=== PATIENT | female | born 1965 | race Caucasian/White ===

== ENCOUNTER 2017-11-06 16:22 | Inpatient (IN) | payer MEDICAID, OTHER ==
[2017-11-06] VITALS (10 sets, daily range): BP systolic 93–158; BP diastolic 50–83; PULSE 70–103; RESP 16–22; TEMP 98.1–102.8; O2SAT 89–98
[~2017-11-06] VITALS: Ht 170.2 cm; Wt 81.0 kg
[~2017-11-06 16:22] MED LIST: 1-ME1LIQ PO; ADVA100A INH; CYCL-36 PO; LORA-474 PO; NAPR-729 PO; PRED20 PO; VENTAER INH; ZITH250T PO
[2017-11-06] MEDS ORDERED: CYCL5TAB PO (16:52)
[2017-11-06] MEDS ORDERED: FLUT1INH INH (16:52)
[2017-11-06] MEDS ORDERED: LORA0.5T PO (16:52)
[2017-11-06] MEDS ORDERED: AMBI5TAB PO (16:52)
[2017-11-06] MEDS ORDERED: AMLO2.5T PO (16:52)
[2017-11-06] MEDS ORDERED: SODIUM CHLOR 0.9% 1000 ML INJ 1,000 ML IV SCH (17:01)
[2017-11-06 17:04] LABS: BILIRUBIN, URINE NEG (NEG); BLOOD, URINE TRACE (NEG); GLUCOSE,URINE NEG (NEG); KETONE, URINE NEG (NEG); NITRITE,URINE NEG (NEG); URINE COLOR YELLOW (YELLW/STRAW); URINE LEUKOCYTE ESTERASE NEG (NEG)
--- NOTE | 2017-11-06 17:05 | PD ---
HPI Chief Complaint: Complaint Time Seen by Provider: 16:57 Travel History International Travel<30 days: No Contact w/Intl Traveler<30days: No Traveled to known affect area: No History of Present Illness HPI 52-year-old female here for evaluation of left flank pain. The patient first noticed the pain yesterday evening when going to sleep. She states that the pain has progressively worsened throughout the day today and is caused her to become nauseous. She has had subjective fevers/chills. She has also had increased urinary frequency. No dysuria or hematuria. No trauma. Pain is made worse with laying down. PFSH Past Medical History Asthma: Yes Anxiety: Yes Cancer: Yes (1994 BREAST CA) Chemotherapy: Yes Diabetes: No Diminished Hearing: No Hypertension: Yes Medical other: Yes (RLS) Musculoskeletal: Yes (NECK) Respiratory: Yes (ASTHMA) Immunizations Current: Yes Radiation Therapy: Yes Influenza Vaccination: No ?: Not Menopausal: Yes Past Surgical History Section: Yes (2001) Mastectomy: Yes (RIGHT) Other Surgery: Yes (RIGHT BREAST RECONSTRUCTION, BILAT AUGMENTATION) Social History Alcohol Use: Yes ([facility]) Tobacco Use: No (QUIT IN 1988 SMOKED 2 PACKS OF CIGS A DAY) Substance Use: No Allergies-Medications (Allergen,Severity, Reaction): Coded Allergies: No Known Allergies (Verified Adverse Reaction, Unknown, 11/06/17) Reported Meds & Prescriptions Reported Meds & Active Scripts Active Reported Ambien (Zolpidem Tartrate) 5 Mg Tab Unknown Dose PO HS PRN Amlodipine (Amlodipine Besylate) 2.5 Mg Tab Unknown Dose PO DAILY Breo Ellipta Inh (Fluticasone/Vilanterol) 100-25 Mcg/Act Inh Unknown Dose INH DAILY Use daily at the same time. Flexeril (Cyclobenzaprine HCl) 5 Mg Tab Unknown Dose PO HS Lorazepam 0.5 Mg Tab Unknown Dose PO HS PRN Review of Systems Except as stated in HPI: all other systems reviewed are Neg Physical Exam Narrative GENERAL: Well-developed, well-nourished, no apparent distress. SKIN: Focused skin assessment warm/dry. No rash. HEAD: Atraumatic. Normocephalic. EYES: Pupils equal and round. No scleral icterus. No injection or drainage. ENT: Mucous membranes pink and moist. NECK: Trachea midline. No JVD. CARDIOVASCULAR: Regular rate and rhythm. No murmur appreciated. RESPIRATORY: No accessory muscle use. Clear to auscultation. Breath sounds equal bilaterally. GASTROINTESTINAL: Abdomen soft, non-tender, nondistended. MUSCULOSKELETAL: No obvious deformities. No clubbing. No cyanosis. No edema. Mild left CVA tenderness. No right CVA tenderness. No midline vertebral step- off or tenderness. NEUROLOGICAL: Awake and alert. No obvious cranial nerve deficits. Motor grossly within normal limits. Normal speech. PSYCHIATRIC: Appropriate mood and affect; insight and judgment normal. Data Data Last Documented VS Vital Signs Date Time Temp Pulse Resp B/P (MAP) Pulse Ox O2 Delivery O2 Flow Rate FiO2 11/06/17 19:34 102.8 103 22 123/63 (83) 95 11/06/17 18:21 Nasal Cannula 2.00 Orders Orders Urinalysis - C+S If Indicated (11/06/17 16:30) Complete Blood Count With Diff (11/06/17 17:) Comprehensive Metabolic Panel (11/06/17:) Lipase (11/06/17:) Prothrombin Time / Inr (Pt) (11/06/17 17:) Act Partial Throm Time (Ptt) (11/06/17 17:01) Ct Abd/Pel W/O Iv Contrast (11/06/17 17:01) Iv Access Insert/Monitor (11/06/17 17:) Ecg Monitoring (11/06/17 17:01) Oximetry (11/06/17 17:01) Sodium Chlor 0.9% 1000 Ml Inj (Ns 1000 M (11/06/17 17:01) Sodium Chloride 0.9% Flush (Ns Flush) (11/06/17 17:15) Morphine Inj (Morphine Inj) (11/06/17 17:15) Ondansetron Inj (Zofran Inj) (11/06/17 17:15) Urine Culture (11/06/17 16:40) Ceftriaxone Inj (Rocephin Inj) (11/06/17 18:15) Sodium Chlor 0.9% 1000 Ml Inj (Ns 1000 M (11/06/17 19:30) Ketorolac Inj (Toradol Inj) (11/06/17 19:30) Acetaminophen (Tylenol) (11/06/17 19:30) Tamsulosin (Flomax) (11/06/17 19:45) Cefepime Inj (Maxipime Inj) (11/06/17 20:00) Labs Laboratory Tests Test 11/06/17 16:40 11/06/17 17:20 Urine Collection Type CLEAN CATCH Urine Color YELLOW Urine Turbidity SL CLOUDY Urine pH 7.0 Urine Specific [place] 1.015 Urine Protein NEG mg/dL Urine Glucose (UA) NEG mg/dL Urine Ketones NEG mg/dL Urine Occult Blood TRACE Urine Nitrite NEG Urine Bilirubin NEG Urine Urobilinogen 1.0 MG/DL Urine Leukocyte Esterase NEG Urine RBC 0-3 /hpf Urine WBC 3-5 /hpf Urine Squamous Epithelial Cells 0-5 /hpf Urine Bacteria MOD /hpf Urine Mucus OCC /lpf Microscopic Urinalysis Comment CULTURE INDICATED White Blood Count 12.9 TH/MM3 Red Blood Count 4.67 MIL/MM3 Hemoglobin 13.7 GM/DL Hematocrit 41.0 % Mean Corpuscular Volume 87.7 FL Mean Corpuscular Hemoglobin 29.4 PG Mean Corpuscular Hemoglobin Concent 33.5 % Red Cell Distribution Width 13.2 % Platelet Count 306 TH/MM3 Mean Platelet Volume 9.7 FL Neutrophils (%) (Auto) 80.8 % Lymphocytes (%) (Auto) 12.1 % Monocytes (%) (Auto) 5.5 % Eosinophils (%) (Auto) 0.9 % Basophils (%) (Auto) 0.7 % Neutrophils # (Auto) 10.4 TH/MM3 Lymphocytes # (Auto) 1.6 TH/MM3 Monocytes # (Auto) 0.7 TH/MM3 Eosinophils # (Auto) 0.1 TH/MM3 Basophils # (Auto) 0.1 TH/MM3 CBC Comment DIFF FINAL Differential Comment Prothrombin Time 9.9 SEC Prothromb Time International Ratio 1.0 RATIO Activated Partial Thromboplast Time 28.2 SEC Blood Urea Nitrogen 11 MG/DL Creatinine 1.00 MG/DL Random Glucose 104 MG/DL Total Protein 8.0 GM/DL Albumin 3.7 GM/DL Calcium Level 8.5 MG/DL Alkaline Phosphatase 80 U/L Aspartate Amino Transf (AST/SGOT) 8 U/L Alanine Aminotransferase (ALT/SGPT) 19 U/L Total Bilirubin 0.3 MG/DL Sodium Level 138 MEQ/L Potassium Level 3.7 MEQ/L Chloride Level 104 MEQ/L Carbon Dioxide Level 26.0 MEQ/L Anion Gap 8 MEQ/L Estimat Glomerular Filtration Rate 58 ML/MIN Lipase 69 U/L [facility] Medical Decision Making Medical Screen Exam Complete: Yes Emergency Medical Condition: Yes Differential Diagnosis Nephrolithiasis, ureterolithiasis, pyelonephritis, musculoskeletal pain, diverticulitis, AAA, dissection Narrative Course Vital signs reviewed. CBC: WBC 12.9, hemoglobin 13.7, hematocrit 41, platelets 306. CMP is essentially unremarkable. Lipase is 69. UA shows moderate bacteria, culture indicated. The patient was given a dose of 1 g of IV Rocephin. CT abdomen pelvis: CONCLUSION: 1. 3 mm calculus at left ureterovesical junction with mild left hydronephrosis and obstructive uropathy. Additional nonobstructing calculus left kidney. 7:25 PM: The patient is diaphoretic and tachycardic. She has a temp of 102.5F with a heart rate of 108. Blood pressure 116/60. The patient was written for a liter of normal saline IV as well as a dose of 30 mg of IV Toradol and 650 mg of Tylenol. Case discussed with on-call urologist Dr. Pedersen. Because the patient appears to be septic at this time with fever and tachycardia as well as diaphoresis, he recommends that I admit the patient to the [facility] in case she needs an emergent ureteral stent. He also recommends that I give her a dose of IV cefepime. Case discussed with [facility] hospitalist Dr. Trinidad who will admit the patient to his service to the ICU at the [facility]. Diagnosis Primary Impression: Sepsis Qualified Codes: A41.9 - Sepsis, unspecified organism Additional Impression: Ureterolithiasis Admitting Information Admitting Physician Requests: Admit Eloy Downs MD Nov 06, 2017 17:05
[2017-11-06] MEDS ORDERED: MORPHINE SULFATE 2 MG/ML INJ IV PUSH ONE (17:15)
[2017-11-06] MEDS ORDERED: ONDANSETRON HCL 4 MG/2 ML VIAL IV PUSH ONE (17:15)
[2017-11-06] MEDS ORDERED: SODIUM CHLORIDE 0.9% FLUSH 10 ML FLUSH IV FLUSH PRN (17:15)
[2017-11-06 17:32] LABS: AUTOMATED NEUTROPHIL # 10.4 TH/MM3 (1.8-7.7); BASOPHIL # 0.1 TH/MM3 (0-0.2); BASOPHIL % 0.7 % (0.0-2.0); EOSINOPHIL # 0.1 TH/MM3 (0-0.4); EOSINOPHIL % 0.9 % (0.0-4.0); HEMOGLOBIN 13.7 GM/DL (11.6-15.3); LYMPH % 12.1 % (9.0-44.0); LYMPHOCYTE # 1.6 TH/MM3 (1.0-4.8); MEAN CELL VOLUME 87.7 FL (80.0-100.0); MEAN CORPUSCULAR HEMOGLOBIN 29.4 PG (27.0-34.0); MEAN CORPUSCULAR HGB CONC 33.5 % (32.0-36.0); MEAN PLATELET VOLUME 9.7 FL (7.0-11.0); MONO % 5.5 % (0.0-8.0); MONOCYTE # 0.7 TH/MM3 (0-0.9); NEUT % 80.8 % (16.0-70.0); PLATELET COUNT 306 TH/MM3 (150-450); RED BLOOD COUNT 4.67 MIL/MM3 (4.00-5.30); RED CELL DISTRIBUTION WIDTH 13.2 % (11.6-17.2); WHITE BLOOD COUNT 12.9 TH/MM3 (4.0-11.0)
[2017-11-06 17:38] LABS: CHLORIDE 104 MEQ/L (98-107); SODIUM (NA) 138 MEQ/L (136-145)
[2017-11-06 17:41] LABS: GLUCOSE,RANDOM 104 MG/DL (74-106)
[2017-11-06 17:42] LABS: ALBUMIN 3.7 GM/DL (3.4-5.0); BLOOD UREA NITROGEN 11 MG/DL (7-18); CALCIUM 8.5 MG/DL (8.5-10.1); PROTHROMBIN TIME - PATIENT 9.9 SEC (9.8-11.6)
[2017-11-06 17:45] LABS: ALT (GPT) 19 U/L (10-53); AST (GOT) 8 U/L (15-37); GLOMERULAR FILTRATION RATE 58 ML/MIN (>89)
[2017-11-06 17:46] LABS: RBC, URINE 0-3 /hpf (0-3); SQUAMOUS EPITHELIAL CELL URINE 0-5 /hpf (0-5)
[2017-11-06 17:46] LABS: TOTAL BILIRUBIN ADULT 0.3 MG/DL (0.2-1.0)
[2017-11-06 17:47] LABS: BACTERIA, URINE MOD /hpf; MUCUS URINE OCC /lpf (OCC)
[2017-11-06 17:48] LABS: ALKALINE PHOSPHATASE 80 U/L (45-117)
[2017-11-06] MEDS ORDERED: cefTRIAXone INJ 1,000 MG in SODIUM CHLORIDE 0.9% INJ 100 ML IV ONE (18:15)
--- NOTE | 2017-11-06 19:11 | RADRPT ---
EXAM DATE/TIME: 11/06/2017 18:37 [place] COMPARISON: No previous studies available for comparison. INDICATIONS : Left flank pain. ORAL CONTRAST: No oral contrast ingested. RADIATION DOSE: 16.54 CTDIvol (mGy) MEDICAL HISTORY : Hypertension. ca breast SURGICAL HISTORY : Mastectomy, right. ENCOUNTER: Initial ACUITY: 1 day PAIN SCALE: 7/10 LOCATION: Left flank TECHNIQUE: Volumetric scanning of the abdomen and pelvis was performed. Using automated exposure control and ad justment of the mA and/or kV according to patient size, radiation dose was kept as low as reasonably achievable to obtain optimal diagnostic quality images. DICOM format image data is available electro nically for review and comparison. FINDINGS: There is approximately 3 mm calculus at the left ureterovesical junction with mild left hydronephrosi s and obstructive uropathy. Additional nonobstructing 4 mm calculus noted lower pole left kidney. No right sided renal calculi or obstructive uropathy. No acute findings in the liver, spleen, adrenals, right kidney or pancreas. No calcified gallstones. No free fluid or free air. No bowel obstruction. CONCLUSION: 1. 3 mm calculus at left ureterovesical junction with mild left hydronephrosis and obstructive uropat hy. Additional nonobstructing calculus left kidney. Camilo Faria MD on November 06, 2017 at 19:08 Board Certified Radiologist. This report was verified electronically.
[2017-11-06] MEDS ORDERED: KETOROLAC TROMETHAMINE 30 MG/ML (IVP) VIAL IV PUSH ONE (19:30)
[2017-11-06] MEDS ORDERED: ACETAMINOPHEN 325 MG TAB PO ONE (19:30)
[2017-11-06] MEDS ORDERED: SODIUM CHLOR 0.9% 1000 ML INJ 1,000 ML IV ONE (19:30)
[2017-11-06] MEDS ORDERED: TAMSULOSIN HCL 0.4 MG CAP PO ONE (19:45)
[2017-11-06] MEDS ORDERED: CEFEPIME INJ 1,000 MG in SODIUM CHLORIDE 0.9% INJ 100 ML IV ONE (20:00)
[2017-11-06] MEDS ORDERED: MORPHINE SULFATE 2 MG/ML INJ IV PUSH PRN (20:45)
[2017-11-06] MEDS: SODIUM CHLOR 0.9% 1000 ML INJ 1,000 ML IV SCH (20:45)
[2017-11-06] MEDS ORDERED: ACETAMINOPHEN 325 MG TAB PO PRN (20:45)
[2017-11-06] MEDS ORDERED: ONDANSETRON HCL 4 MG/2 ML VIAL IV PUSH PRN (20:45)
--- NOTE | 2017-11-06 21:43 | PD.CONS ---
HPI Service Urology Consult Requested By Reason for Consult Nephrolithiasis Primary Care Physician Mckenzie Joseph MD Diagnosis: History of Present Illness 52yo female with severe left flank pain. CT scan identified a 3mm left UVJ stone with moderate hydronephrosis and some perinephric stranding. Initial presentation to ED was stable, however she developed a fever >102 and chills. She was then started on Cefepime abx and Toradol for pain. Upon exam currently she is with minimal pain, temperature improved to 100, reports feeling much better. She has never had stones in the past. No N/V. No hematuria. No LUTS. Review of Systems ROS Limitations: Clinical Condition Constitutional: COMPLAINS OF: Fever Ears, nose, mouth, throat: DENIES: Tinnitus Respiratory: DENIES: Cough Cardiovascular: DENIES: Chest pain Gastrointestinal: COMPLAINS OF: Abdominal pain, Nausea Genitourinary: DENIES: Urinary frequency, Hematuria Musculoskeletal: COMPLAINS OF: Back pain Neurologic: DENIES: Headache Psychiatric: DENIES: Anxiety Except as stated in HPI: all other systems reviewed are Neg Past Family Social History Past Medical History HTN Past Surgical History None Reported Medications Reported Meds & Active Scripts Active Reported Ambien (Zolpidem Tartrate) 5 Mg Tab Unknown Dose PO HS PRN Amlodipine (Amlodipine Besylate) 2.5 Mg Tab Unknown Dose PO DAILY Breo Ellipta Inh (Fluticasone/Vilanterol) 100-25 Mcg/Act Inh Unknown Dose INH DAILY Use daily at the same time. Flexeril (Cyclobenzaprine HCl) 5 Mg Tab Unknown Dose PO HS Lorazepam 0.5 Mg Tab Unknown Dose PO HS PRN Allergies: Coded Allergies: No Known Allergies (Verified Allergy, Unknown, 11/06/17) Active Ordered Medications Current Medications Medications (Trade) Dose Ordered Sig/Ever Route Start Time Stop Time Status Last Admin (NS Flush) 2 ml UNSCH PRN IV FLUSH 11/06/17 17:15 Cefepime HCl 2000 mg/Sodium Chloride 100 ml @ 200 mls/hr Q12H IV 11/07/17 09:00 (Zofran Inj) 4 mg Q6HR PRN IV PUSH 11/06/17 20:45 (Tylenol) 650 mg Q4H PRN PO 11/06/17 20:45 (Morphine Inj) 2 mg Q3H PRN IV PUSH 11/06/17 20:45 Sodium Chloride 1,000 ml @ 84 mls/hr [id number] IV 11/06/17 20:45 (Breo Ellipta 100-25 Inh) 1 puff DAILY INH 11/07/17 09:00 Family History Family history reviewed and sister with Kidney stones Social History Quit smoking Physical Exam Vital Signs Date Time Temp Pulse Resp B/P (MAP) Pulse Ox O2 Delivery O2 Flow Rate FiO2 11/06/17 19:50 20 11/06/17 19:34 102.8 103 22 123/63 (83) 95 11/06/17 18:21 98.1 94 16 158/83 (108) 96 Nasal Cannula 2.00 11/06/17 18:20 Nasal Cannula 2.00 11/06/17 18:19 89 Room Air 11/06/17 17:38 70 16 137/71 (93) 97 Room Air 11/06/17 17:15 97 Room Air 11/06/17 16:26 98.8 86 16 143/72 (95) 96 Physical Exam GENERAL: This is a well-nourished, well-developed patient, in no apparent distress. SKIN: No rashes, ecchymoses or lesions. Cool and dry. HEAD: Atraumatic. Normocephalic. EYES: Extraocular motions intact. No scleral icterus. No injection or drainage. ENT: Nose without bleeding, purulent drainage. Airway patent. NECK: Trachea midline. No JVD or lymphadenopathy. CARDIOVASCULAR: Normal pulses. RESPIRATORY: nonlabored. GASTROINTESTINAL: Abdomen soft, non-tender, nondistended. MUSCULOSKELETAL: Extremities without clubbing, cyanosis, or edema. NEUROLOGICAL: Awake and alert. Motor and sensory grossly within normal limits. Normal speech. Lab results reviewed: Yes Laboratory Tests Test 11/06/17 16:40 11/06/17 17:20 Urine Collection Type CLEAN CATCH Urine Color YELLOW Urine Turbidity SL CLOUDY Urine pH 7.0 Urine Specific [place] 1.015 Urine Protein NEG Urine Glucose (UA) NEG Urine Ketones NEG Urine Occult Blood TRACE Urine Nitrite NEG Urine Bilirubin NEG Urine Urobilinogen 1.0 Urine Leukocyte Esterase NEG Urine RBC 0-3 Urine WBC 3-5 Urine Squamous Epithelial Cells 0-5 Urine Bacteria MOD Urine Mucus OCC Microscopic Urinalysis Comment CULTURE INDICATED White Blood Count 12.9 Red Blood Count 4.67 Hemoglobin 13.7 Hematocrit 41.0 Mean Corpuscular Volume 87.7 Mean Corpuscular Hemoglobin 29.4 Mean Corpuscular Hemoglobin Concent 33.5 Red Cell Distribution Width 13.2 Platelet Count 306 Mean Platelet Volume 9.7 Neutrophils (%) (Auto) 80.8 Lymphocytes (%) (Auto) 12.1 Monocytes (%) (Auto) 5.5 Eosinophils (%) (Auto) 0.9 Basophils (%) (Auto) 0.7 Neutrophils # (Auto) 10.4 Lymphocytes # (Auto) 1.6 Monocytes # (Auto) 0.7 Eosinophils # (Auto) 0.1 Basophils # (Auto) 0.1 CBC Comment DIFF FINAL Differential Comment Prothrombin Time 9.9 Prothromb Time International Ratio 1.0 Activated Partial Thromboplast Time 28.2 Blood Urea Nitrogen 11 Creatinine 1.00 Random Glucose 104 Total Protein 8.0 Albumin 3.7 Calcium Level 8.5 Alkaline Phosphatase 80 Aspartate Amino Transf (AST/SGOT) 8 Alanine Aminotransferase (ALT/SGPT) 19 Total Bilirubin 0.3 Sodium Level 138 Potassium Level 3.7 Chloride Level 104 Carbon Dioxide Level 26.0 Anion Gap 8 Estimat Glomerular Filtration Rate 58 Lipase 69 Date/Time Source Procedure Growth Status 11/06/17 16:40 Urine Clean Catch Urine Culture Pending Received Result Diagram: 11/06/17 1720 11/06/17 1720 Personally reviewed images: Yes Imaging Last Impressions Abdomen/Pelvis CT 11/06/17 1701 Signed Impressions: Service Date/Time: Monday, November 06, 2017 18:37 - CONCLUSION: 1. 3 mm calculus at left ureterovesical junction with mild left hydronephrosis and obstructive uropathy. Additional nonobstructing calculus left kidney. Camilo Faria MD Assessment and Plan Problem List: (1) Sepsis ICD Code: A41.9 - Sepsis, unspecified organism Status: Acute (2) Ureterolithiasis ICD Code: N20.1 - Calculus of ureter Status: Acute Assessment and Plan -Personally reviewed images, 3mm stone noted at left UVJ with perinephric stranding and moderate left hydronephrosis -Patient initially showed signs of possible sepsis, however upon exam appears to have significantly improved -However, given the risk of Urospesis and unclear if stone has yet passed, it would be safest for the patient to be transferred to ICU under close observation overnight with broad spectrum Abx. If her clinical picture worsens we will proceed with immediate intervention with ureteral stent placement. Patient understands. -NPO -Given the size and location of the stone, she does have a very good chance of passing the stone without intervention. Toradol and Flomax started. -Will follow closely Problem Qualifiers (1) Sepsis: Qualified Codes: A41.9 - Sepsis, unspecified organism Júnior Pedersen MD Nov 06, 2017 21:43
[2017-11-07] VITALS (12 sets, daily range): BP systolic 97–122; BP diastolic 54–68; PULSE 70–80; RESP 17–20; TEMP 98.3–99.7; O2SAT 91–97
[2017-11-07] MEDS ORDERED: CHLORHEXIDINE GLUCONATE 2 % 1 PACK (2 CLOTHS)(extra cloths) TOPICAL PRN (00:30)
[2017-11-07] MEDS: ZOLPIDEM TARTRATE 5 MG TAB PO PRN ×2 (03:18→20:51)
[2017-11-07] MEDS: FLUTICASONE 100 MCG/VILANTEROL 25 MCG INHALER INH SCH ×2 (03:18→08:04)
[2017-11-07] MEDS: CHLORHEXIDINE GLUCONATE 2 % 1 PACK (2 CLOTHS)(taper/protocol) TOPICAL SCH (04:00)
--- NOTE | 2017-11-07 04:24 | MH ---
cc: Julio Carter MD DATE OF ADMISSION: 11/06/2017 ADMISSION DIAGNOSES: 1. Left calculus left ureterovesical junction with mild left hydronephrosis and obstructive uropathy. 2. Urinary tract infection with possible urosepsis. 3. Asthma. 4. Hypertension. 5. History of cancer of the right breast with prior mastectomy and chemotherapy in the . 6. Restless leg syndrome. 7. Anxiety. PERTINENT HISTORY: This is a 52-year-old white female who came to the emergency room today because of persistent pain in her left flank that began some last night and then became worse throughout the day with some nausea but no vomiting. The pain is in the left flank area. She came to the ED which shows her to have a 3 mm stone at the ureterovesical junction with hydronephrosis and obstructive uropathy. While in the ED she developed fever up to 102 degrees. The ED physician contacted the urologist, Dr. Pedersen who preferred her to be transferred up to [facility] in case he has to go in and do a procedure to remove the stone. He recommended putting her on cefepime for antibiotic choice. She is going to be admitted to Dr. Trinidad's service. I am seeing this patient in [facility] for Dr. Trinidad, not knowing how long before she gets up there. She seems to be comfortable at this time. MEDICAL HISTORY: She has asthma, hypertension, history of cancer of the right breast with chemotherapy and mastectomy. She has restless leg syndrome, anxiety. She has no heart disease, diabetes, liver disease, peptic ulcer disease, colon disease. Never had a colonoscopy. She has never had a stroke or seizure. No prior kidney stones. SURGICAL HISTORY: She had a right mastectomy. She has had one . She had a right breast reconstruction with saline implant augmentation of both breasts. ALLERGIES: NONE. MEDICATIONS: She is on amlodipine 2.5 a day, zolpidem 5 mg at night p.r.n., Breo Ellipta 100/25 mcg per actuation one inhalation daily. She takes Flexeril 5 mg at night, lorazepam 0.5 mg generally twice a day. FAMILY HISTORY: Her mother is living at 79 and has hypertension. Father in his late 70s COPD. SOCIAL HISTORY: She is . Has a half a glass of wine a day, works for a [employer]. She has not smoked since age 24, smoked 2 packs a day for 11 years prior to quitting. REVIEW OF SYSTEMS: GENERAL: She has had the fever in the ED and some chills. Temperature was up a little over 102. HEENT: No runny nose, sore throat or vision complaints. CARDIOVASCULAR: No chest pain, orthopnea, PND. PULMONARY: No cough, hemoptysis, wheezing. GASTROINTESTINAL: She had nausea but no vomiting. No diarrhea, no rectal bleeding. GENITOURINARY: As mentioned. She is not seeing any blood in her urine. She did have some dysuria on a couple of occasions. She has been urinating more frequently. EXTREMITIES: Without swelling. NEUROLOGIC: Without any focal complaints. MUSCULOSKELETAL: Without any acute complaints. PHYSICAL EXAMINATION: GENERAL: A pleasant white female in no acute distress. VITAL SIGNS: Her temperature at highest was 102.8, her BP is 123/63, O2 sat 95%, respirations 22. HEENT: TMs clear. Nose, neck and mouth without inflammation or lesions. NECK: Without JVD, no bruit. HEART: Regular rate and rhythm, no murmur. LUNGS: Clear. ABDOMEN: Soft, non-tender, no masses. She does have some slight left CVA tenderness. EXTREMITIES: No edema. Pulses palpated. NEUROLOGIC: Oriented x 3. Cranial nerves intact. LABORATORY DATA: White count was 12.9, hemoglobin 13.7 with ____ neutrophils, 12.1 lymphs. Electrolytes, BUN, creatinine were normal. BUN 11, creatinine 1. AST, ALT, alkaline phosphatase, total protein, albumin normal. Calcium normal. Coags INR was 1.0. Urinalysis showed moderate urine bacteria, occasional mucus. Culture was indicated. IMAGING: As mentioned, showed a 3 mm calculus at the left ureterovesical junction and mild left hydronephrosis and obstructed neuropathy. There was an additional nonobstructing calculus in the left kidney. ASSESSMENT: As noted. PLAN: The patient will admitted up to the main hospital with urology consult with Dr. Pedersen. She has been put on cefepime for IV antibiotics. IV fluids are being administered. She will follow up with Dr. Trinidad and Dr. Pedersen tomorrow. MD JAMESON Leblanc/ , 08:52 PM , 04:22 AM
[2017-11-07 06:54] LABS: AUTOMATED NEUTROPHIL # 9.6 TH/MM3 (1.8-7.7); BASOPHIL % 0.4 % (0.0-2.0); EOSINOPHIL # 0.1 TH/MM3 (0-0.4); EOSINOPHIL % 1.1 % (0.0-4.0); HEMATOCRIT 37.6 % (35.0-46.0); HEMOGLOBIN 12.4 GM/DL (11.6-15.3); LYMPH % 11.7 % (9.0-44.0); LYMPHOCYTE # 1.4 TH/MM3 (1.0-4.8); MEAN CELL VOLUME 89.3 FL (80.0-100.0); MEAN CORPUSCULAR HEMOGLOBIN 29.5 PG (27.0-34.0); MEAN CORPUSCULAR HGB CONC 33.1 % (32.0-36.0); MEAN PLATELET VOLUME 9.5 FL (7.0-11.0); MONO % 4.3 % (0.0-8.0); MONOCYTE # 0.5 TH/MM3 (0-0.9); NEUT % 82.5 % (16.0-70.0); PLATELET COUNT 205 TH/MM3 (150-450); RED BLOOD COUNT 4.21 MIL/MM3 (4.00-5.30); RED CELL DISTRIBUTION WIDTH 13.9 % (11.6-17.2); WHITE BLOOD COUNT 11.7 TH/MM3 (4.0-11.0)
[2017-11-07 07:30] LABS: BICARBONATE 22.9 MEQ/L (21.0-32.0); CALCIUM 7.8 MG/DL (8.5-10.1)
[2017-11-07] MEDS: CEFEPIME INJ 2,000 MG in SODIUM CHLORIDE 0.9% INJ 100 ML IV SCH ×2 (08:04→20:51)
[2017-11-07] MEDS ORDERED: KETOROLAC TROMETHAMINE 30 MG/ML (IVP) VIAL IV PUSH ONE (08:45)
--- NOTE | 2017-11-07 08:46 | HHI.PR ---
Subjective Remarks was feeling better...pain just started again in left flank. Objective Vitals heart reg lung cta abd s/nt ext no edema mild left flank tenderness Vital Signs Date Time Temp Pulse Resp B/P (MAP) Pulse Ox O2 Delivery O2 Flow Rate FiO2 11/07/17 06:00 70 11/07/17 04:00 98.7 70 19 97/54 (68) 91 11/07/17 04:00 70 11/07/17 02:00 76 11/07/17 00:00 72 11/06/17 23:38 99.2 78 20 111/55 (73) 98 11/06/17 23:00 98.8 75 20 97/50 (66) 95 11/06/17 22:40 80 20 93/54 (67) 98 11/06/17 21:10 100.9 94 20 102/51 (68) 97 11/06/17 21:00 20 11/06/17 21:00 20 11/06/17 19:50 20 11/06/17 19:34 102.8 103 22 123/63 (83) 95 11/06/17 18:21 98.1 94 16 158/83 (108) 96 Nasal Cannula 2.00 11/06/17 18:20 Nasal Cannula 2.00 11/06/17 18:19 89 Room Air 11/06/17 17:38 70 16 137/71 (93) 97 Room Air 11/06/17 17:15 97 Room Air 11/06/17 16:26 98.8 86 16 143/72 (95) 96 Result Diagram: 11/07/17 0510 11/07/17 0510 A/P Problem List: (1) Nephrolithiasis ICD Codes: N20.0 - Calculus of kidney Status: Acute Plan: 1. left nephrolithiasis left ureter. 3mm. perinephric stranding and septic picture on presentation cont cefepime f/u cultures cont ivf pain control . toradol. prn morphine npo until Urology decides on ?cysto dvt prophylaxis. (2) Asthma ICD Codes: J45.909 - Unspecified asthma, uncomplicated Status: Chronic Blaise Trinidad MD Nov 07, 2017 08:46
[2017-11-07] MEDS: SODIUM CHLOR 0.9% 1000 ML INJ 1,000 ML IV SCH (12:51)
[2017-11-07] MEDS ORDERED: LORazepam 0.5 MG TAB PO PRN (16:15)
--- NOTE | 2017-11-07 19:30 | HHI.PR ---
Subjective Patient symptoms today Patient appears significantly improved, little to no pain. no fevers. Objective Vital Signs Vital Signs Date Time Temp Pulse Resp B/P (MAP) Pulse Ox O2 Delivery O2 Flow Rate FiO2 11/07/17 18:00 80 11/07/17 16:00 79 11/07/17 16:00 99.7 79 20 122/68 (86) 95 11/07/17 14:00 75 11/07/17 12:00 76 11/07/17 12:00 98.3 76 18 121/68 (85) 96 11/07/17 10:00 75 11/07/17 08:00 76 11/07/17 07:00 98.7 72 18 109/59 (76) 97 11/07/17 06:00 70 11/07/17 04:00 98.7 70 19 97/54 (68) 91 11/07/17 04:00 70 11/07/17 02:00 76 11/07/17 00:00 72 11/06/17 23:38 99.2 78 20 111/55 (73) 98 11/06/17 23:00 98.8 75 20 97/50 (66) 95 11/06/17 22:40 80 20 93/54 (67) 98 11/06/17 21:10 100.9 94 20 102/51 (68) 97 11/06/17 21:00 20 11/06/17 21:00 20 11/06/17 19:50 20 11/06/17 19:34 102.8 103 22 123/63 (83) 95 Result Diagram: 11/07/17 0510 11/07/17 0510 Objective Remarks NAD, AAOx3 Resp NL No edema Medications and IVs Current Medications Medications (Trade) Dose Ordered Sig/Ever Route Start Time Stop Time Status Last Admin (NS Flush) 2 ml UNSCH PRN IV FLUSH 11/06/17 17:15 11/07/17 08:04 Cefepime HCl 2000 mg/Sodium Chloride 100 ml @ 200 mls/hr Q12H IV 11/07/17 09:00 11/07/17 08:04 (Zofran Inj) 4 mg Q6HR PRN IV PUSH 11/06/17 20:45 (Tylenol) 650 mg Q4H PRN PO 11/06/17 20:45 (Morphine Inj) 2 mg Q3H PRN IV PUSH 11/06/17 20:45 Sodium Chloride 1,000 ml @ 84 mls/hr [id number] IV 11/06/17 20:45 11/07/17 12:51 (Breo Ellipta 100-25 Inh) 1 puff DAILY INH 11/07/17 01:49 11/07/17 08:04 Miscellaneous Information Patient in critical care unit? Ass... [id number] 11/07/17 00:30 (Chlorhexidine 2% Cloth) 3 pack DAILY@04 TOPICAL 11/07/17 04:00 11/11/17 04:01 11/07/17 04:00 (Chlorhexidine 2% Cloth) 3 pack UNSCH PRN TOPICAL 11/07/17 00:30 11/12/17 00:16 (Ambien) 5 mg HS PRN PO 11/07/17 02:00 11/07/17 03:18 (Ativan) 0.5 mg BID PRN PO 11/07/17 16:15 11/07/17 17:08 Assessment and Plan Problem List: (1) Sepsis ICD Code: A41.9 - Sepsis, unspecified organism Status: Acute (2) Ureterolithiasis ICD Code: N20.1 - Calculus of ureter Status: Acute Assessment and Plan -High likelihood patient passed her stone at this time -Appears acute infection/sepsis may have been transient or resolved -Patient may be transferred to a [facility] surg floor, continue abx and close observation -If she continues to do well by the am, she may be discharged with follow-up in Urology clinic in 1-2 weeks. -Please call with questions Problem Qualifiers (1) Sepsis: Qualified Codes: A41.9 - Sepsis, unspecified organism Júnior Pedersen MD Nov 07, 2017 19:30
[2017-11-08] VITALS: BP 117/65; PULSE 83; RESP 30; TEMP 98.5; O2SAT 88
[2017-11-08] MEDS: SODIUM CHLOR 0.9% 1000 ML INJ 1,000 ML IV SCH (00:14)
[2017-11-08 04:00] VITALS: BP 150/74; PULSE 84; RESP 18; TEMP 98.6; O2SAT 88
[2017-11-08] MEDS: CHLORHEXIDINE GLUCONATE 2 % 1 PACK (2 CLOTHS)(taper/protocol) TOPICAL SCH (04:00)
[2017-11-08 04:50] LABS: AUTOMATED NEUTROPHIL # 4.3 TH/MM3 (1.8-7.7); BASOPHIL % 0.5 % (0.0-2.0); EOSINOPHIL # 0.2 TH/MM3 (0-0.4); EOSINOPHIL % 2.7 % (0.0-4.0); HEMATOCRIT 36.6 % (35.0-46.0); HEMOGLOBIN 12.2 GM/DL (11.6-15.3); LYMPH % 18.1 % (9.0-44.0); LYMPHOCYTE # 1.1 TH/MM3 (1.0-4.8); MEAN CELL VOLUME 89.3 FL (80.0-100.0); MEAN CORPUSCULAR HEMOGLOBIN 29.9 PG (27.0-34.0); MEAN CORPUSCULAR HGB CONC 33.5 % (32.0-36.0); MEAN PLATELET VOLUME 9.8 FL (7.0-11.0); MONO % 7.5 % (0.0-8.0); MONOCYTE # 0.4 TH/MM3 (0-0.9); NEUT % 71.2 % (16.0-70.0); PLATELET COUNT 183 TH/MM3 (150-450); RED BLOOD COUNT 4.09 MIL/MM3 (4.00-5.30); RED CELL DISTRIBUTION WIDTH 13.9 % (11.6-17.2)
[2017-11-08 05:10] LABS: BICARBONATE 22.9 MEQ/L (21.0-32.0); CALCIUM 7.8 MG/DL (8.5-10.1); CREATININE 0.82 MG/DL (0.50-1.00)
--- NOTE | 2017-11-08 07:53 | HHI.PR ---
Subjective Remarks still some mild left flank pain. better no n/v Objective Vitals heart reg lung cta abd s/nt. mild left flank tenderness ext no edema Vital Signs Date Time Temp Pulse Resp B/P (MAP) Pulse Ox O2 Delivery O2 Flow Rate FiO2 11/08/17 04:00 98.6 84 18 150/74 (99) 88 11/08/17 00:00 98.5 83 30 117/65 (82) 88 11/07/17 20:00 98.3 80 17 121/67 (85) 94 11/07/17 18:00 80 11/07/17 16:00 79 11/07/17 16:00 99.7 79 20 122/68 (86) 95 11/07/17 14:00 75 11/07/17 12:00 76 11/07/17 12:00 98.3 76 18 121/68 (85) 96 11/07/17 10:00 75 11/07/17 08:00 76 Result Diagram: 11/08/17 0415 11/08/17 0415 A/P Problem List: (1) Nephrolithiasis ICD Codes: N20.0 - Calculus of kidney Status: Acute Plan: 1. left nephrolithiasis left ureter. 3mm. perinephric stranding and septic picture on presentation uti. gnr cont cefepime...plan to dc on levaquin but f/u final cx d/c ivf d/c on abx/nsaid for few days and prn norco f/u pcp and urology (2) Asthma ICD Codes: J45.909 - Unspecified asthma, uncomplicated Status: Chronic Blaise Trinidad MD Nov 08, 2017 07:53
[2017-11-08] MEDS ORDERED: HYDR-3516 PO ×2 (07:55→08:02)
[2017-11-08] MEDS ORDERED: LEVA500T33 PO ×2 (07:55→08:03)
[2017-11-08] MEDS ORDERED: NAPR500 PO ×2 (07:56→08:03)
--- NOTE | 2017-11-08 07:56 | HHI.DCPOC ---
Discharge Care Plan Diagnosis: (1) UTI (urinary tract infection) (2) Nephrolithiasis Goals to Promote Your Health * To prevent worsening of your condition and complications * To maintain your health at the optimal level Directions to Meet Your Goals Take your medications as prescribed Follow your dietary instruction Follow activity as directed Keep your appointments as scheduled Take your immunizations and boosters as scheduled If your symptoms worsen call your PCP, if no PCP go to Urgent Care Center or Emergency Room Smoking is Dangerous to Your Health. Avoid second hand smoke Call the 24-hour hour crisis hotline for domestic abuse at Blaise Trinidad MD Nov 08, 2017 07:56
[2017-11-08 08:00] VITALS: BP 129/68; PULSE 81; RESP 18; TEMP 98.6; O2SAT 88
[2017-11-08] MEDS ORDERED: ACETAMINOPHEN/HYDROcodone 325 MG/5 MG TAB PO PRN (08:00)
[2017-11-08] MEDS ORDERED: NAPROXEN 500 MG TAB PO ONE (08:00)
[2017-11-08] MEDS: FLUTICASONE 100 MCG/VILANTEROL 25 MCG INHALER INH SCH (09:36)
[2017-11-08] MEDS: CEFEPIME INJ 2,000 MG in SODIUM CHLORIDE 0.9% INJ 100 ML IV SCH (09:37)
[2017-11-08 12:00] VITALS: BP 126/67; PULSE 81; RESP 18; TEMP 98.6; O2SAT 88
== END 2017-11-08 12:40 | disposition home or self-care (01) | DRG 872 ==
LOC: PHED 16:22 → PHEDA 20:18 → HIMW 11-07
PROVIDERS: ADMIT Hospitalist; ATTEND Hospitalist
DX: A41.9 Sepsis, unspecified organism (principal); N13.2 Hydronephrosis with renal and ureteral calculous obstruction; N39.0 Urinary tract infection, site not specified; B96.20 Unspecified Escherichia coli [E. coli] as the cause of diseases classified elsewhere; J45.909 Unspecified asthma, uncomplicated; I10 Essential (primary) hypertension; G25.81 Restless legs syndrome; F41.9 Anxiety disorder, unspecified; Z90.11 Acquired absence of right breast and nipple; Z85.3 Personal history of malignant neoplasm of breast; Z92.21 Personal history of antineoplastic chemotherapy; Z79.899 Other long term (current) drug therapy
CPT/HCPCS: 74176; 80048; 80053; 81001; 83690; 85025; 85610; 85730; 87077; 87086; 87186; 87641; 96361; 96365; 96375; J0692; J0696; J1885; J2270; J2405; J7030